=== PATIENT | female | born 1990 | race American Indian/Alaskan Native ===

== ENCOUNTER 2019-03-29 17:27 | Emergency (ER) | payer SELFPAY ==
[2019-03-29 18:43] VITALS: BP 127/77
[2019-03-29 19:20] LABS: Bilirubin,Urine NEG (Negative); Blood,Urine SM (Negative); Color,Urine Yellow (Yellow); Mucus,Urine 2+ /HPF
== END 2019-03-29 21:49 | disposition left against medical advice (07) ==
LOC: ED 17:27
DX: R05 Cough (principal); Z53.21 Procedure and treatment not carried out due to patient leaving prior to being seen by health care provider
CPT/HCPCS: 81001